=== PATIENT | female | born 1960 | race Caucasian/White ===

== ENCOUNTER → 2024-08-01 09:58 | Outpatient (REF) | payer OTHER, SELFPAY | LOC: RAD 09:58 | PROVIDERS: ATTENDING PHYSICIAN Chiropractor; FAMILY PHYSICIAN Family Medicine | DX: M99.04 Segmental and somatic dysfunction of sacral region (principal); M54.10 Radiculopathy, site unspecified; M54.41 Lumbago with sciatica, right side; M51.17 Intervertebral disc disorders with radiculopathy, lumbosacral region | CPT/HCPCS: 72100; 72170 ==

== ENCOUNTER → 2025-04-02 13:20 | Outpatient (REF) | payer OTHER, SELFPAY | LOC: WDC 13:20 | PROVIDERS: ATTENDING PHYSICIAN Nurse Practitioner | DX: Z87.891 Personal history of nicotine dependence (principal); Z12.31 Encounter for screening mammogram for malignant neoplasm of breast | CPT/HCPCS: 77063; 77067; 77080 ==

== ENCOUNTER → 2025-04-19 08:56 | Outpatient (REF) | payer OTHER, SELFPAY | LOC: HWRAD 08:56 | PROVIDERS: ATTENDING PHYSICIAN Nurse Practitioner | DX: Z87.891 Personal history of nicotine dependence (principal) | CPT/HCPCS: 71271 ==